=== PATIENT | male | born 1995 | race Hispanic/Latino ===

== ENCOUNTER 2022-08-23 02:59 | Emergency (ER) | payer SELFPAY ==
[2022-08-23] MEDS ORDERED: Ketorolac Tromethamine 30 MG/ML VIAL ONE (03:34)
[2022-08-23] MEDS ORDERED: Dicyclomine 20 MG/2 ML VIAL ONE (03:35)
[2022-08-23] MEDS ORDERED: Fentanyl 100 MCG/2 ML VIAL ONE (06:12)
== END 2022-08-23 06:28 | disposition home or self-care (01) ==
LOC: CSHERS 02:59
DX: K80.20 Calculus of gallbladder without cholecystitis without obstruction (principal); F17.210 Nicotine dependence, cigarettes, uncomplicated
CPT/HCPCS: 76705; 96372; 96374; 96375; J1885; J3010

== ENCOUNTER 2022-08-26 08:22 | Observation (INO) | payer SELFPAY ==
[2022-08-26] MEDS ORDERED: Ketorolac Tromethamine 30 MG/ML VIAL ONE (09:11)
[2022-08-26 09:23] LABS: #Eosinphils 0.3 10x3/uL (0.0-0.5); #Monocytes 0.8 10x3/uL (0.0-1.1); #Neutrophils 10.7 10x3/uL (1.5-8.4); %Basophils 0.3 % (0.0-2.0); %Eosinophils 2.2 % (0.0-6.0); %Lymphocytes 12.4 % (18.0-47.0); %Monocytes 5.7 % (0.0-10.0); %Neutrophils 79.1 % (40.0-75.0); Hemoglobin 13.4 g/dL (13.5-17.5); Mean Corpuscular HGB CONC 34.4 g/dL (32.0-36.0); Mean Corpuscular Hemoglobin 29.8 pg (27.0-33.0); Mean Corpuscular Volume 86.9 fl (81.2-95.1); Mean Platelet Volume 10.3 fl (7.4-10.4); Platelet Count 288 10x3/uL (150-450); RBC Distribution Width 12.6 % (11.5-14.5); Red Blood Cell (RBC) Count 4.49 10x6/uL (4.32-5.72); White Blood Cell (WBC) Count 13.5 10x3/uL (3.5-10.5)
[2022-08-26 09:35] LABS: ALT (SGPT) 31 U/L (8-55); AST (SGOT) 33 U/L (5-34); Albumin 4.1 g/dL (3.5-5.0); Alkaline Phosphatase 73 U/L (40-110); Anion Gap 12 mmol/L (10-20); BUN (Urea Nitrogen) 9 mg/dL (8.9-20.6); Bilirubin, Total 1.7 mg/dL (0.2-1.2); Calc. Creatinine Clearance 0 mL/min (70-130); Calcium 9.5 mg/dL (7.8-10.44); Carbon Dioxide 27 mmol/L (22-29); Chloride 101 mmol/L (98-107); Estimated GFR 128; Globulin 3.5 g/dL (2.4-3.5); Glucose 132 mg/dL (70-105); Lipase 13 U/L (8-78); Potassium 3.9 mmol/L (3.5-5.1); Protein, Total 7.6 g/dL (6.0-8.3); Sodium 136 mmol/L (136-145)
[2022-08-26] MEDS ORDERED: Morphine 2 MG/ML VIAL ONE (11:28)
[2022-08-26 11:39] LABS: SARS-CoV-2 NAA Rapid Test Not Detected (NotDetected)
[2022-08-26] MEDS ORDERED: Piperacillin/Tazobactam 3.375 GM in Sodium Chloride 0.9% 100 ML IVPB SCH ×2 (12:30→17:00)
[2022-08-26 13:11] VITALS: BMI 35.6
[2022-08-26] MEDS ORDERED: Bupivacaine PF 0.5% 30 ML VIAL ONE (13:38)
[2022-08-26] MEDS ORDERED: EPINEPHrine 1 MG/ML AMP ONE (13:38)
[2022-08-26] MEDS ORDERED: Iopamidol 15 ML ONE (13:38)
[2022-08-26] MEDS ORDERED: Fentanyl 100 MCG/2 ML VIAL ONE ×4 (14:47→19:13)
[2022-08-26] MEDS ORDERED: Rocuronium Bromide 10 MG/ML (10ML VIAL) ONE (15:50)
[2022-08-26] MEDS ORDERED: PROPOFOL 20 ML ONE (15:50)
[2022-08-26] MEDS ORDERED: Lidocaine 2% PF 5 ML VIAL ONE (15:50)
[2022-08-26] MEDS ORDERED: Dexamethasone 4 mg/ml Vial ONE (15:50)
[2022-08-26] MEDS ORDERED: Ondansetron PF 4 MG/2 ML Vial ONE (15:50)
[2022-08-26] MEDS ORDERED: HYDROmorphone 0.5 MG/0.5 ML SYRINGE ONE (15:58)
[2022-08-26] MEDS ORDERED: Glycopyrrolate 0.2 MG/ML 5 ML SYRINGE ONE (16:42)
[2022-08-26] MEDS ORDERED: Morphine 2 MG/ML VIAL SLOW IVP PRN (18:36)
[2022-08-26] MEDS ORDERED: HYDROcodone/Acetaminophen 5/325 mg Tablet PO PRN (18:36)
[2022-08-26] MEDS ORDERED: Ondansetron PF 4 MG/2 ML Vial IVP PRN (18:37)
[2022-08-26] MEDS ORDERED: Ibuprofen 400 MG TAB PO PRN (19:32)
[2022-08-26] MEDS ORDERED: Ondansetron ODT 4 MG TAB PO PRN (19:33)
[2022-08-26] MEDS: Famotidine/PF 20 mg/2ml Vial SLOW IVP SCH (21:42)
[2022-08-27] MEDS: HYDROcodone/Acetaminophen 5/325 mg Tablet PO PRN ×2 (02:20→08:07)
[2022-08-27] MEDS: D5 1/2 NS w/20 mEq KCL 1,000 ML IV SCH ×3 (02:23→20:25)
[2022-08-27 05:01] LABS: #Monocytes 0.7 10x3/uL (0.0-1.1); #Neutrophils 10.8 10x3/uL (1.5-8.4); %Basophils 0.1 % (0.0-2.0); %Lymphocytes 7.8 % (18.0-47.0); %Monocytes 5.3 % (0.0-10.0); %Neutrophils 86.6 % (40.0-75.0); ALT (SGPT) 53 U/L (8-55); AST (SGOT) 49 U/L (5-34); Albumin 3.7 g/dL (3.5-5.0); Alkaline Phosphatase 72 U/L (40-110); Anion Gap 11 mmol/L (10-20); BUN (Urea Nitrogen) 7 mg/dL (8.9-20.6); Bilirubin, Total 0.7 mg/dL (0.2-1.2); Calc. Creatinine Clearance 243 mL/min (70-130); Calcium 8.8 mg/dL (7.8-10.44); Carbon Dioxide 25 mmol/L (22-29); Chloride 104 mmol/L (98-107); Estimated GFR 126; Globulin 3.4 g/dL (2.4-3.5); Glucose 130 mg/dL (70-105); Lipase 11 U/L (8-78); Mean Corpuscular HGB CONC 33.1 g/dL (32.0-36.0); Mean Corpuscular Hemoglobin 29.6 pg (27.0-33.0); Mean Corpuscular Volume 89.6 fl (81.2-95.1); Platelet Count 304 10x3/uL (150-450); Potassium 4.7 mmol/L (3.5-5.1); Protein, Total 7.1 g/dL (6.0-8.3); RBC Distribution Width 12.7 % (11.5-14.5); Red Blood Cell (RBC) Count 4.05 10x6/uL (4.32-5.72); Sodium 135 mmol/L (136-145); White Blood Cell (WBC) Count 12.5 10x3/uL (3.5-10.5)
[2022-08-27] MEDS: Piperacillin/Tazobactam 3.375 GM in Sodium Chloride 0.9% 100 ML IVPB SCH ×3 (06:30→22:54)
[2022-08-27] MEDS: Famotidine/PF 20 mg/2ml Vial SLOW IVP SCH ×2 (08:08→21:20)
[2022-08-27] MEDS: Morphine 4 MG/ML VIAL SLOW IVP PRN ×2 (08:16→13:01)
[2022-08-27] MEDS: Ketorolac Tromethamine 30 MG/ML VIAL IVP PRN ×2 (15:28→22:51)
[2022-08-27] MEDS ORDERED: D5 1/2 NS w/20 mEq KCL 1,000 ML ONE (20:20)
[2022-08-28] MEDS: Piperacillin/Tazobactam 3.375 GM in Sodium Chloride 0.9% 100 ML IVPB SCH (05:59)
[2022-08-28] MEDS: Ketorolac Tromethamine 30 MG/ML VIAL IVP PRN (06:02)
[2022-08-28 06:04] LABS: #Eosinphils 0.1 10x3/uL (0.0-0.5); #Monocytes 0.5 10x3/uL (0.0-1.1); %Basophils 0.2 % (0.0-2.0); %Eosinophils 1.3 % (0.0-6.0); %Lymphocytes 26.8 % (18.0-47.0); %Monocytes 5.5 % (0.0-10.0); %Neutrophils 66.1 % (40.0-75.0); Hemoglobin 11.7 g/dL (13.5-17.5); Mean Corpuscular HGB CONC 32.6 g/dL (32.0-36.0); Mean Corpuscular Hemoglobin 29.5 pg (27.0-33.0); Mean Corpuscular Volume 90.4 fl (81.2-95.1); Mean Platelet Volume 9.6 fl (7.4-10.4); Platelet Count 303 10x3/uL (150-450); Red Blood Cell (RBC) Count 3.97 10x6/uL (4.32-5.72); White Blood Cell (WBC) Count 9.1 10x3/uL (3.5-10.5)
[2022-08-28] MEDS: D5 1/2 NS w/20 mEq KCL 1,000 ML IV SCH (06:09)
[2022-08-28 06:17] LABS: ALT (SGPT) 92 U/L (8-55); AST (SGOT) 66 U/L (5-34); Albumin 3.5 g/dL (3.5-5.0); Alkaline Phosphatase 82 U/L (40-110); Anion Gap 13 mmol/L (10-20); BUN (Urea Nitrogen) 11 mg/dL (8.9-20.6); Bilirubin, Total 0.5 mg/dL (0.2-1.2); Calc. Creatinine Clearance 253 mL/min (70-130); Calcium 8.8 mg/dL (7.8-10.44); Carbon Dioxide 25 mmol/L (22-29); Chloride 105 mmol/L (98-107); Estimated GFR 127; Globulin 3.3 g/dL (2.4-3.5); Glucose 99 mg/dL (70-105); Potassium 4.5 mmol/L (3.5-5.1); Protein, Total 6.8 g/dL (6.0-8.3); Sodium 138 mmol/L (136-145)
[2022-08-28] MEDS: Famotidine/PF 20 mg/2ml Vial SLOW IVP SCH (10:01)
[2022-08-28] MEDS: Polyethylene Glycol 3350 17 GM Packet PO SCH ×2 (12:03→13:25)
[2022-08-28] MEDS: Docusate 100 MG CAP PO SCH ×2 (12:03→13:25)
[2022-08-28 12:30] VITALS: BP 141/78; TEMP 98.8
[2022-08-28] MEDS ORDERED: Docusate 100 MG CAP PO SCH (21:00)
[2022-08-29] MEDS ORDERED: Polyethylene Glycol 3350 17 GM Packet PO SCH ×2 (09:00→10:13)
== END 2022-08-28 14:27 | disposition home or self-care (01) ==
LOC: CSHERS 08:22 → CSHTELE 12:10
PROVIDERS: ADMIT Surgery; ATTEND Surgery
PROC: 0FT44ZZ Resection of Gallbladder, Percutaneous Endoscopic Approach (ICD-10-PCS; principal; 2022-08-26)
DX: K80.12 Calculus of gallbladder with acute and chronic cholecystitis without obstruction (principal); K82.A1 Gangrene of gallbladder in cholecystitis; F17.210 Nicotine dependence, cigarettes, uncomplicated
CPT/HCPCS: 36415; 47532; 76705; 80053; 83690; 85025; 88304; 96361; 96365; 96366; 96374; 96375; 96376; C1713; G0378; J0171; J1100; J1170; J1885; J2001; J2270; J2405; J2543; J2704; J3010; J3480; J3490; Q9967; S0020; S0028; U0002